=== PATIENT | male | born 1965 | race Two or more races ===

== ENCOUNTER → 2021-10-28 10:57 | Outpatient (REF) | payer OTHER, SELFPAY ==
--- NOTE | 2021-10-28 11:07 | CA_ITS ---
Acquisition Time: 2021-10-28 11:06:36 Total Exercise Time: 00:08:16 Test Indications: ABN EKG, CP Medications: SEE CHART Protocol: GRACIELA Max HR: 171 BPM 104% of Pred: 164 BPM Max BP: 136/078 mmHG Max Work Load: 10.1 METS Exercise stress test with exercise 8 min 16 sec of Graciela protocol, without anginal symptoms, with isolated PACs, with normotensive response to exercise, without EKG changes meeting criteria for ischemia. Echo images obtained by tech at rest and immediately post peak exercise. Definity contrast used. Test reviewed with Dr Barlow. Referred By: Janett Post Overread By: ENE CAT
== END ==
LOC: HO.CARD 10:57
PROVIDERS: Visit Provider Family Medicine
DX: R07.89 Other chest pain (principal)
CPT/HCPCS: 93350; Q9957

== ENCOUNTER 2023-04-21 12:45 | Outpatient (REF) | payer OTHER, SELFPAY ==
--- NOTE | ~2023-04-21 | MR_ITS ---
EXAMINATION: MR CERVICAL SPINE WITHOUT CONTRAST CLINICAL INFORMATION: Neck pain, numbness and tingling, left arm. COMPARISON: None available. TECHNIQUE: MRI of the cervical spine was obtained using routine sequences without contrast. FINDINGS: Alignment: Mild cervicothoracic dextrocurvature, convex to the right at C7-T1. Straightening of the cervical spine in the sagittal plane with trace anterolisthesis at C6-C7. Craniocervical Junction/C1-C2 Articulations: Intact and aligned. Arthritic changes at the anterior atlantodental joint with a subchondral cyst in the dens. Visualized Intracranial/Extracranial: There is a 1.3 cm probable benign lipoma within the muscular structures adjacent to the posterior occiput. Otherwise unremarkable.. Vertebral Bodies: Vertebral body heights are well-maintained. Disc Spaces and Endplates: Severe disc space height loss at C4-C5 with intradiscal degenerative signal changes and spondylosis with Schmorl's nodes. Iwkreusx-wf-iunfod disc space height loss at C6-C7 with disc desiccation and spondylosis. Disc desiccation and mild disc space height loss with minor spondylosis at C5-C6. Disc desiccation and minor spondylosis at C3-C4. Bone Marrow: Type I degenerative marrow signal changes along the endplates at C4-C5. No other significant bone marrow edema. C2-C3: Tiny central disc protrusion with minimal indentation of the ventral thecal sac without cord impingement or canal stenosis. Mild facet arthropathy noted bilaterally with minor uncinate process spurring, with mild left-sided neural foraminal stenosis. C3-C4: Broad-based disc osteophyte complex with mild flattening of the ventral dural sac without cord impingement or canal stenosis. Uncovertebral spurring noted bilaterally, right more than left, with mild left-sided and hnyrvscj-nq-aifsfj right-sided facet arthrosis. There is severe right-sided and neyzsjty-xq-lvrsew left-sided neural foraminal stenosis with impingement on the exiting right C4 nerve root. C4-C5: Broad-based posterior disc osteophyte complex asymmetric to the left, with effacement of the dural sac on the left with mild chronic ventral cord deformity and spinal cord volume loss consistent with spondylitic myelomalacia. There is uoqj-uu-ziqyndks spinal canal stenosis asymmetric to the left with left lateral recess stenosis and there is uncovertebral spurring, left more than right, with ekjp-lj-icwbwnzd facet arthropathy bilaterally. Severe left-sided and moderate right-sided neural foraminal stenosis, with impingement on the exiting left C5 nerve root. C5-C6: Shallow broad-based disc protrusion asymmetric to the left with left subarticular disc osteophyte complex and flattening of the ventral dural sac without cord impingement. Urgb-mo-oakudsly spinal canal stenosis is noted and there is uncovertebral spurring bilaterally with mild facet arthropathy. Vnlkezne-ij-zevplw left-sided and qjpk-kv-pvbnokrn right-sided neural foraminal stenosis. C6-C7: Trace unroofing of the posterior disc margin noted consistent with mild degenerative spondylolisthesis, with posterolateral disc osteophyte complex and flattening of the ventral dural sac without cord impingement. Mild spinal canal stenosis is noted. There is uncovertebral spurring, left more than right with xkuczgox-gd-oyxkjr left-sided facet arthropathy, with severe left-sided neural foraminal stenosis and probable impingement on the exiting left C7 nerve root. Zwbz-yg-jdmriaxz right-sided neural foraminal stenosis is noted. C7-T1: Shallow broad-based disc protrusion noted with mild flattening of the ventral dural sac with ligamentum flavum thickening without cord impingement. No significant canal stenosis. Suspicion for a left subarticular to foraminal disc protrusion with uncovertebral spurring bilaterally, mild right and moderate left-sided facet arthropathy. There is xlfd-xd-nrswvetq bilateral neural foraminal stenosis with disc herniation suspected on the left impinging on the exiting left C8 nerve root. T1-T2: Right subarticular to foraminal disc osteophyte complex noted with mild facet arthropathy and nviiqbge-jv-arbkge right-sided neural foraminal stenosis with possible impingement on the exiting right T1 nerve root. No canal stenosis. T2-T3: There is focal thickening of the ligamentum flavum on the left with associated signal loss noted which may reflect calcium hydroxyapatite deposition associated with left-sided facet arthropathy, with flattening of the dorsolateral dural sac on the left without cord impingement or significant neural foraminal stenosis. There is a small right paramedian disc osteophyte complex with mild indentation of the right ventral thecal sac without cord impingement. Spinal Cord: Findings consistent with spondylitic myelomalacia at C4-C5. Nonspecific small T2 hyperintensity on the right side of the spinal cord at C7-T1 which may be artifactual with a small T2 hyperintensity in the dorsolateral cord on the left at the same level, also possibly artifactual but otherwise nonspecific findings. No cord edema or syrinx. Extracranial Soft Tissues: Normal signal voids seen within the major arterial and venous structures in the neck. Subcentimeter probable lymph nodes in the fat posterior to the trapezius muscles bilaterally. Borderline prominent IJ chain lymph nodes at the suprahyoid levels bilaterally. Possibly reactive. Follow-up as per clinical indications. MR/MR cervical spine wo con IMPRESSION: 1. Straightening of the cervical spine in the sagittal plane with trace anterolisthesis at C6-C7 and mild cervicothoracic dextrocurvature. 2. Multilevel DDD and spondylosis, most apparent at C4-C5 and C6-C7 with multilevel disc osteophyte complexes and disc protrusions as detailed by level above with pcyh-rp-alizvgeg degrees of spinal canal stenosis at C4-C5 and C5-C6 with mild spinal canal stenosis at C6-C7. 3. Multilevel bilateral DJD with multilevel bilateral neural foraminal stenosis, most apparent on the left at C4-C5, C5-C6 and C6-C7 and on the right at C3-C4 and T1-T2. Left subarticular to foraminal disc herniation at C7-T1 impinging on the exiting left C8 nerve root. See above for details. 4. Possible calcium hydroxyapatite deposition within the ligamentum flavum on the left at T2-T3. This can be confirmed with CT if clinically warranted. 5. Small T2 hyperintensities in the spinal cord at C7-T1 and T2-T3 which may be artifactual but otherwise nonspecific findings. Chronic spondylitic myelomalacia suspected at C4-C5. 6. Borderline prominent IJ chain lymph nodes at the suprahyoid levels bilaterally and slightly prominent lymph nodes posterior to the trapezius muscles bilaterally. These are likely reactive. Follow-up as per clinical indications. 7. 1.3 cm probable benign lipoma along the posterior occiput.
== END 2023-04-21 12:46 | disposition home or self-care (01) ==
LOC: HO.MRI 12:45
PROVIDERS: Absent Provider Family Medicine; PCP Family Medicine; Visit Provider Internal Medicine
DX: M54.2 Cervicalgia (principal)
CPT/HCPCS: 72141

== ENCOUNTER 2024-04-19 10:58 | Outpatient (REF) | payer OTHER, SELFPAY ==
[2024-04-19 15:01] LABS: MANUAL DIFF FLAG NO
[2024-04-19 15:03] LABS: Basophils Percent Auto 0.6 % (0-2); Eosinophils Absolute Auto 0.1 X10*3/uL (0.0-0.4); Hematocrit 43.8 % (42.0-52.0); Hemoglobin 14.7 g/dl (14.0-18.0); Imm Gran Abs Auto 0.02 X10*3/uL (0.00-0.03); Imm Gran Pct Auto 0.3 % (0.0-0.4); Lymphocytes Absolute Auto 1.9 X10*3/uL (1.2-4.9); Lymphocytes Percent Auto 28.6 % (20-40); Mean Corpuscular HGB Conc 33.6 g/dl (31.0-36.0); Mean Corpuscular Hemoglobin 30.4 pg (27.0-33.0); Mean Corpuscular Volume 90.5 fL (80.0-98.0); Mean Platelet Volume 11.8 fL (9.4-12.4); Monocytes Absolute Auto 0.5 X10*3/uL (0.1-1.2); Monocytes Percent Auto 7.8 % (2-11); Neutrophils Absolute Auto 4.2 x10*3/uL (2.0-8.3); Neutrophils Percent Auto 61.7 % (45-73); Platelet Count 155 X10*3/uL (160-400); Red Blood Count 4.84 X10*6/uL (4.60-5.80); Red Cell Distribution Width 13.2 % (11.0-16.0); White Blood Count 6.8 X10*3/uL (4.8-10.8)
[2024-04-19 15:04] LABS: Appearance Urine Clear; Color Urine Yellow; Glucose Urine UA Negative (Negative); Leukocyte Esterase Urine Negative (Negative); Nitrite Urine Negative (Negative); PH 6.5 (5.0-9.0); Urine Blood Negative (Negative); Urine Ketones Negative (Negative); Urine Protein Negative (Neg-Trace)
[2024-04-19 15:10] LABS: Bacteria Urine None Seen (None Seen); Hyaline Casts Urine 0-2 /LPF (0-2); RBC Urine 0-2 /HPF (0-2); Squamous Epithelial Cell Urine 0-2 /HPF (0-2); WBC Urine 0-5 /HPF (0-5)
[2024-04-19 15:27] LABS: Alanine Aminotransferase 29 U/L (0-40); Albumin Level 4.4 g/dL (3.5-5.0); Alkaline Phosphatase 59 U/L (39-117); Anion Gap 12 (12-20); Aspartate Amino Transferase 28 U/L (5-37); Bilirubin Total 0.6 mg/dL (0.0-1.0); Blood Urea Nitrogen 16 mg/dL (9-16); Carbon Dioxide 27 mmol/L (22-29); Chloride 102 mmol/L (96-108); Cholesterol 201 mg/dL (<200); Estimated Glomerular Filt Rate > 60; Glucose Random 92 mg/dL (60-115); HDL Cholesterol 55 mg/dL (>40); LDL Cholesterol Calculated 131 mg/dL (<100); Potassium 3.8 mmol/L (3.3-5.1); Sodium 137 mmol/L (135-145); Total Protein 7.7 g/dL (6.5-8.0); Triglycerides 76 mg/dL (<150)
[2024-04-19 15:33] LABS: Creatinine Urine 144.32 mg/dL; Microalbum/Creatinine Ratio Ur 4.1 ug/mg cr (<30)
[2024-04-19 15:43] LABS: PSA,Total (Free>4and<10) 0.49 ng/mL (0.00-4.00)
== END 2024-04-19 10:59 | disposition home or self-care (01) ==
LOC: HO.CHCLDS 10:58
PROVIDERS: Visit Provider Family Medicine
DX: E66.9 Obesity, unspecified (principal); R39.12 Poor urinary stream; Z12.5 Encounter for screening for malignant neoplasm of prostate
CPT/HCPCS: 36415; 80053; 80061; 81001; 82043; 82570; 84153; 85025

== ENCOUNTER 2024-04-24 10:23 | Outpatient (REF) | payer OTHER, SELFPAY ==
--- NOTE | ~2024-04-24 | US_ITS ---
EXAMINATION: US SCROTUM CLINICAL INFORMATION: 59-year-old male with bilateral testicular pain, rule out varicocele. COMPARISON: None available. TECHNIQUE: A sonogram of the scrotum was performed assessing martins-scale appearance and color Doppler flow. Spectral Doppler analysis of the arterial and venous flow were performed in the testes bilaterally. FINDINGS: RIGHT: Right testicle measures 3.5 x 1.8 x 3.1 cm, volume 10.3 mL. No focal testicular parenchymal solid lesions are visualized. A 3 mm simple cyst is incidentally noted. Spectral Doppler analysis of the arterial and venous flow is normal in the right testis. Right epididymal head is normal in size. Right epididymal Doppler flow is normal. No right hydrocele is seen. There are mild varicoceles. LEFT: Left testicle measures 3.8 x 2.1 x 3.1 cm, volume 13.0 mL. No focal testicular parenchymal solid lesions are visualized. A 2 mm simple cyst is incidentally noted. Spectral Doppler analysis of the arterial and venous flow is normal in the left testis. Left epididymal head is normal in size. Left epididymal Doppler flow is normal. A small left hydrocele is seen. There are mild varicoceles US/US scrotum IMPRESSION: 1. A small left hydrocele is seen. 2. There are mild bilateral varicoceles.
== END 2024-04-24 10:24 | disposition home or self-care (01) ==
LOC: HO.HMGCX 10:23
PROVIDERS: PCP Family Medicine; Visit Provider Family Medicine
DX: N50.811 Right testicular pain (principal); N50.812 Left testicular pain
CPT/HCPCS: 76870

== ENCOUNTER 2025-02-19 11:31 | Outpatient (AMB) | payer OTHER, SELFPAY ==
--- NOTE | 2025-02-19 11:38 | MHC.OFFVIS ---
Vital Signs 02/19/25 11:47 Height 5 ft 9 in Weight 260 lb 2.327 oz BMI 38.4 BP 94/57 L Blood Pressure Location Lt brachial Position Sitting Pulse 68 Intake Visit Reasons: colo screening Intake Note: Sai presents in the office as a colonoscopy screening. CC: He states that he is just due for a colonoscopy. No other GI concerns at this time. Wants to discuss if it is possible to have a cologuard instead of doing the actual procedure this time around? Head Soft Sugar Operator Required: No Allergies No Known Allergies Allergy (Verified 02/19/25 11:48) HPI HPI colo screening: Details: 59-year-old male with past medical history of hyperlipidemia, hypertension is here today for initial consultation. Patient was sent to us by his PCP. Patient reports that he had colonoscopy over 10 years ago or so in [place]. Patient was told he had benign polyps and no need for repeat for colonoscopy for 10 years. No family history of CRC. Patient would rather go for Cologuard instead of going for colonoscopy. Patient reports that his who is with patient during the visit had Cologuard and he would like to proceed with that at 1st. Patient does understand it if that becomes positive which is possibility he will have to return to the office for colorectal screening via colonoscopy. [facility] Medical History Hyperlipidemia HTN (hypertension) Obesity, unspecified Weak urinary stream Colon polyps Testicle pain Surgical History Hx of colonoscopy Social History Patient Tobacco Use Status: Former Tobacco user Review of Systems Const Denies weight gain and Denies weight loss ENT Reports no additional complaints, Denies dysphagia and Denies odynophagia Card Reports no additional complaints Resp Reports no additional complaints GI Denies abdominal pain, Denies belching, Denies melena, Denies bloating, Denies change in bowel habits, Denies dysphagia, Denies excessive flatus, Denies dyspepsia, Denies heartburn, Denies diarrhea, Denies loose stools, Denies nausea, Denies odynophagia and Denies vomiting Reports no additional complaints Musc Reports no additional complaints Neuro Reports no additional complaints Psych Reports no additional complaints Endo Reports no additional complaints Physical Exam Vital Signs: Last Vital Signs Pulse 68 02/19/25 11:47 BP 94/57 L 02/19/25 11:47 BMI result Body Mass Index 38.4 Const General: healthy appearing, no acute distress and well developed Nutritional Appearance: well nourished Orientation/consciousness: patient oriented x3 Resp Effort & Inspection: normal respiratory effort, able to speak in complete sentences, no tracheal deviation and symmetric chest movement Auscultation: clear to auscultation bilaterally Cardio Rate: regular rate GI Inspection: Yes normal to inspection and No distended Palpation (GI): Soft to palpation, not firm, nontender and No hepatosplenomegaly present Auscultation: normal bowel sounds General: Yes no CVA tenderness Back/Spine/Pelvis Back: no CVA tenderness Skin General skin exam: elasticity normal, turgor normal and dry skin Neuro General: patient oriented x3 Psych Appearance: grossly normal Mental Status: mental status grossly normal Assessment & Plan Assessment & Plan (1) Screen for colon cancer: Code(s): Z12.11 - Encounter for screening for malignant neoplasm of colon Plan Request sent to [facility] for Cologuard to be sent to patient's home. He is aware that if that comes back positive he is to call our office and make an appointment to go for colonoscopy. Patient denies any family history of CRC. Denies any melena, hematochezia, unintentional weight loss or ribbon like stools. Patient denies any GI symptoms today. He will follow-up with our office as needed. He is agreeable to current plan of care and verbalizes understanding of instructions. Patient's reports that she will make sure that patient will call our office if Cologuard is positive. Both patient and his were given the opportunity to ask questions and all questions answered. Thank you for allowing me to participate in his care Coding Level of Care Code New Pt Level 3 (08663) Diagnoses Screen for colon cancer Z12.11 Time Spent (min) 40 Comment 30 minutes spent with patient and additional 10 minutes spent reviewing his records
[2025-02-19 11:47] VITALS: BP 94/57; PULSE 68; BMI 38.4
--- OUTSIDE RECORDS SUMMARY | 2025-02-19 14:04 | XMS_ITS | Clinical Summary ---
Author Organization [employer] Address [address] [place] [address] Care Team Providers Care Special Events Assistant Name Role Phone Janett Post MD Primary Care Provider [phone] Allergies No known active allergies Medications LORazepam (Ativan) 0.5 MG tabletIndicatio ns:Other chest pain,Panic attack Take 1 tablet (0.5 mg) by mouth every 6 (six) hours if needed for anxiety for up to 5 doses. 5 tablet 05/28/2024 Active Olmesartan-amLO DIPine-HCTZ 40-10-12.5 MG tablet TAKE 1 TABLET DAILY 90 tablet 3 06/06/2024 Active Hospital, Clinic, or Other Facility Administered Medication Ordered Dose Route Frequency Start Date End Date Status aspirin chewable tablet 324 mgIndications:Other chest pain 324 mg PO Once 05/28/2024 Active Active Problems Problem Noted Date Diagnosed Date Obesity (BMI 30-39.9) 04/19/2024 Assessment & Plan (04/19/2024 11:37 AM EDT): Pt is currently 260 lb. Discussed calorie deficit, recommended reduction of 20-30% of maintenance calories; animal humane agent supervisor referral offered. Recommended to decrease soda and sugary beverage consumption. Recommended at least 20 g per meal of protein to assist with satiety. Recommended at least 150 min/week of moderate intensity exercise. Weak urinary stream 04/19/2024 Assessment & Plan (04/19/2024 11:31 AM EDT): Pt states he has to push to pee and it hurts a bit when doing so. Relevant order: Urinalysis, Complete, with Reflex to Culture PSA, Total With Reflex to PSA, Free Referral to Urology Pain in both testicles 04/19/2024 Assessment & Plan (04/19/2024 11:34 AM EDT): Pt is experiencing pain in both testicles. He has some relief when lifted. Relevant orders: Referral to Urology Hypertensive disorder 04/17/2024 Mixed hyperlipidemia 04/17/2024 Spasm 04/17/2024 Neck pain 03/10/2023 Assessment & Plan (03/10/2023 11:03 PM EDT): Pain mostly located on his left side, refers having left arm tingling, numbness, will order a neck MRI, continue rest, apply ice/heat, will order meloxicam as needed Immunizations Name Administration Dates Next Due Influenza Injectable Quadriv alant Preservative Free IIV4 MDCK 09/17/2022 Influenza injectable quadrivalent preservative f ree 08/20/2023,08/21/2021 Zoster, Recombinant 09/17/2022 Family History Medical History Relation Name Comments Osteoarthritis Mother Relation Name Status Comments Mother Social History Tobacco Use Types Packs/Day Years Used Date Smoking Tobacco: Former Cigarettes Passive Smoke Exposure: Past Smokeless Tobacco: Never Tobacco Cessation:Counseling Given: Not Answered Alcohol Use Standard Drinks/Week Comments Yes 6 (1 standard drink = 0.6 oz pur e alcohol) Depression Answer Date Recorded Patient Health Questionnaire-9 Score 3 04/19/2024 Patient Health Questionnaire-9 Score 3 04/19/2024 Last PHQ-9: Questionnaire Data Not on file 0 04/19/2024 Housing Stability Answer Date Recorded What is your housing situation today? I have edna soto 04/19/[address] you li ve. Do you have problems with any of the following? None of the above 04/19/2024 Food Insecurity Answer Date Recorded Within the past 12 months, y ou worried that your food would run out before you got money to buy more: Never True 04/19/2024 Within the past 12 months,th e food you bought just didn't last and you didn't have enough money to get more: Never True Transportation Answer Date Recorded In the past 12 months, has l ack of transportation kept you from medical appts, meetings, work or from getting things needed for daily living? No 04/19/2024 Utilities Answer Date Recorded In the past 12 months, has t he electric, gas, oil or water company threatened to shut off services in your home? No 04/19/2024 Depression Answer Date Recorded Patient Health Questionnaire-2 Score 0 04/19/2024 Internet Access Answer Date Recorded Internet Access Q1 No 07/02/2024 Internet Access Q2 I do not want or need it 12/2023 Sex and Gender Information Value Date Recorded Sex Assigned at Male 08/30/2022 10:39 AM EDT Legal Sex Male 10:39 AM EDT Gender Identity Male 08/30/2022 10:39 AM EDT Sexual Orientation Straight 08/30/2022 10 :39 AM EDT Last Filed Vital Signs Vital Sign Reading Time Taken Comments Blood Pressure 126/85 05/28/2024 5:15 PM EDT Pulse 57 05/28/2024 5:15 PM EDT Temperature 36.8 ??C (98.2 ??F) 05/28/2024 5:15 PM ED T Respiratory Rate 20 05/28/2024 5:15 PM EDT Oxygen Saturation 100% 05/28/2024 5:15 PM EDT RA Inhaled Oxygen Concentration - - Weight 122 kg (268 lb 3.2 oz) 04/19/2024 10:07 A M EDT Height 177.8 cm (5' 10 ) 04/19/2024 10:07 AM EDT Body Mass Index 38.48 04/19/2024 10:07 AM EDT Plan of Treatment Health Maintenance Due Date Last Done Comments CT Colonography 1965 Colonoscopy 1965 Colorectal Cancer Screening 1965 FIT DNA/Cologuard 1965 FIT 1965 FOBT 1965 HIV Screening 1965 Sigmoidoscopy 1965 Alcohol/Substance Use Screening 1977 DTaP/Tdap/Td Vaccines (1 - Tdap) 1984 Hepatitis B Vaccines (1 of 3 - 19+ 3-dose series) 1984 Pneumococcal Vaccine: 50+ Years (1 of 1 - PCV) 2015 Zoster Vaccines (2 of 2) 11/12/2022 09/17/2022 COVID-19 Vaccine (6 - season) 2024 08/13/2023, 10/02/2022, 06/03/2022, Additional history exists Influenza Vaccine (#1) 2024 , 09/17/2022, 08/21/2021 Depression Screening 04/19/2025 04/19/2024, 04/19/20 SDOH Screening 04/19/2025 04/19/2024 Tobacco Screening 05/28/2025 05/28/2024 Lipid Panel 04/19/2029 04/19/2024, 06/01, 08/21/2021 RSV Patients and Patients Aged 60 years or older (1 - 1-dose 75+ series) 2040 Hepatitis C Screening Completed 06/24/2022 HIB Vaccines Aged Out No longer eligi ble based on patient's age to complete this topic HPV Vaccines Aged Out No longer eligi ble based on patient's age to complete this topic Hepatitis A Vaccines Aged Out No long er eligible based on patient's age to complete this topic IPV Vaccines Aged Out No longer eligi ble based on patient's age to complete this topic Meningococcal Vaccine Aged Out No rissa brissa eligible based on patient's age to complete this topic RSV under 20 months Aged Out No longe r eligible based on patient's age to complete this topic Rotavirus Vaccines Aged Out No longer eligible based on patient's age to complete this topic Procedures Procedure Name Priority Date/Time Associated Diagnosis Comments LIPID PANEL, STANDARD Routine 04/19/2024 11:02 AM EDT Obesity (BMI 30-39.9) ZZZ HISTORICAL HEPATITIS C AB W/REFL TO HCV RNA, QN, PCR Routine 06/24/2022 8:32 AM EDT from Last 3 Months or Most Recently Relevant to Health Maintenance Results * (ABNORMAL) Lipid Panel, Standard (04/19/2024 11:02 AM EDT) Triglycerides 76 <150 mg/dL [facility] Comment:Desirable Triglyceri de: less than 150 mg/dLBorderline High Triglyceride 150-199 mg/dLHigh Triglyceride: 200-499 mg/dLVery High Triglyceride: greater than or equal to 5OO mg/dL Cholesterol 201(H) <200 mg/dL [facility] Comment:Desirable Cholestero l: less than 200 mg/dLBorderline High Cholesterol: 200-239 mg/dLHigh Cholesterol: greater than 239 mg/dL LDL Cholesterol Calculated 131(H) <100 mg/dL [facility] Comment:Desirable LDL: less than 100 mg/dLNear Optimal/Above Optimal LDL: 110- 129 mg/dLBorderline High LDL: 130-159 mg/dLHigh LDL: 160-189 mg/dLVery High LDL: greater than or equal to 190 mg/dL HDL Cholesterol 55 >40 mg/dL [facility] Comment:Desirable HDL: great er than 40 mg/dL Note: This HDL assay may give artificially low results in patients with liver disease. Blood Venous blood specimen / Unknown 04/19/2024 11:02 AM EDT 04/19/2024 2:46 PM EDT us Janett Post MD LAB BLOOD ORDERABLES Final Re sult [facility] [address] [place] [phone] * HEPATITIS C AB W/REFL TO HCV RNA, QN, PCR (06/24/2022 8:32 AM EDT) HEPATITIS C ANTIBODY NON-REACT SUJIT NON-REACT [facility] INDEX 0.17 <1.00 [facility] Comment: ?? HCV antibody was non-reactive. There is no laboratory ?? evidence of HCV infection. ?? In most cases, no further action is required. However, if recent HCV exposure is suspected, a test for HCV RNA (test code 95050) is suggested. ?? For additional information please refer to http://education.[employer]/faq/CEJ74t2 (This link is being provided for informational/ educational purposes only.) ?? 06/24/2022 8:32 AM EDT us Janett Post MD HISTORICAL/NON ORDERABLE LABS Final Result [facility] [address] from Last 3 Months or Most Recently Relevant to Health Maintenance Insurance Care Teams Special Events Assistant Relationship Specialty Start Date End Date Janett Post MD [address] [place] [address] PCP - General Family Medicine 08/18/21
--- OUTSIDE RECORDS SUMMARY | 2025-02-19 14:04 | XMS_ITS | Clinical Summary ---
Author Organization [facility] Address [address] [place] [address] Care Team Providers Care Harness Worker Name Role Phone Unavailable Primary Care Provider Unavailabl e Social History Tobacco Use Types Packs/Day Years Used Date Smoking Tobacco: Never Assessed Sex and Gender Information Value Date Recorded Sex Assigned at Not on file Legal Sex Male 8:43 PM EST Gender Identity Not on file Sexual Orientation Not on file Plan of Treatment Health Maintenance Due Date Last Done Comments DTaP,Tdap,and Td Vaccines (1 - Tdap) 1984 Hepatitis B Vaccines (1 of 3 - 19+ 3-dose series) 1984 Pneumococcal Vaccine: 50+ Ye ars (1 of 1 - PCV) 2015 Zoster Vaccines (1 of 2) 2015 Cholesterol Screening (Lipid Panel) 11/25/2023 Colorectal Cancer Screening: Colonoscopy 11/25/2023 Depression Screening 11/25/2023 HIV Screening 11/25/2023 Hepatitis C Screening 11/25/2023 Social Influencers of Health Screening 11/25/2023 COVID-19 Vaccine ( - 2023-2 5 season) 2024 Influenza Vaccine (Season Ended) 2025 RSV Immunization Adult Patie nts (1 - 1-dose 75+ series) 2040 HIB Vaccines Aged Out No longer eligi [...] on patient's age to complete this topic MMR Vaccines Aged Out No longer eligi ble based on patient's age to complete this topic Meningococcal ACWY Vaccine Aged Out N o longer eligible based on patient's age to complete this topic Meningococcal B Vaccine Aged Out No l onger eligible based on patient's age to complete this topic Pneumococcal Vaccine: Pediat rics (0 to 5 Years) and At-Risk Patients (6 to 64 Years) Aged Out No longer eligible b ased on patient's age to complete this topic RSV Immunization Patients Un antonia 20 months Aged Out No longer eligible b ased on patient's age to complete this topic Varicella Vaccines Aged Out No longer eligible based on patient's age to complete this topic
--- OUTSIDE RECORDS SUMMARY | 2025-02-19 14:04 | XMS_ITS | Encounter Summary ---
Author Organization [employer] Address [address] [facility] [address] [place] [address] Care Team Providers Care Mandate Retail Service Merchandiser Name Role Phone Janett Post MD Primary Care Provider [phone] Encounter Details Date Type Department Care Team (Late st Contact Info) Description 06/08/2023 Orders Only [facility] [address] [place] [address] Marie De Leon LPN Social History Tobacco Use Types Packs/Day Years Used Date Smoking Tobacco: Never Assessed Depression Answer Date Recorded Patient Health Questionnaire-9 Score 0 03/10/2023 Depression Answer Date Recorded Patient Health Questionnaire-2 Score 0 03/10/2023 Sex and Gender Information Value Date Recorded Sex Assigned at Male 08/30/2022 10:39 AM EDT Legal Sex Male 10:39 AM EDT Gender Identity Male 08/30/2022 10:39 AM EDT Sexual Orientation Straight 08/30/2022 10 :39 AM EDT documented as of this encounter Plan of Treatment Not on file documented as of this encounter Visit Diagnoses Not on filedocumented in this encounter Additional Health Concerns Assessment Noted Time PHQ-9 Depression Total Score: 0 03/10/20 23 3:57 PM EDT documented as of this encounter Care Teams Mandate Retail Service Merchandiser Relationship Specialty Start Date End Date Janett Post MD [address] [place] [address] PCP - General Family Medicine 08/18/21 documented as of this encounter
--- OUTSIDE RECORDS SUMMARY | 2025-02-19 14:04 | XMS_ITS | Encounter Summary ---
Author Organization [employer] Address [address] [facility] [address] [place] [address] Care Team Providers Care Ehs Manager Name Role Phone Janett Post MD Primary Care Provider [phone] Reason for Visit * Reason Onset Date Comments ER Follow-up 05/29/2024 Encounter Details Date Type Department Care Team ([facility] st Contact Info) Description 05/29/2024 Telephone [facility] [address] [place] [address] Janett Post MD [address] [place] [address] ER Follow-up Social History Tobacco Use Types Packs/Day Years Used Date Smoking Tobacco: Former Cigarettes Passive Smoke Exposure: Past Smokeless Tobacco: Never Alcohol Use Standard Drinks/Week Comments Yes 6 [...] Recorded Patient Health Questionnaire-2 Score 0 04/19/2024 Sex and Gender Information Value Date Recorded Sex Assigned at Male 08/30/2022 10:39 AM EDT Legal Sex Male 10:39 AM EDT Gender Identity Male 08/30/2022 10:39 AM EDT Sexual Orientation Straight 08/30/2022 10 :39 AM EDT documented as of this encounter Miscellaneous Notes * Telephone Encounter - Wing Josh RN - 05/30/2024 4:05 PM EDT Tc to pt regarding follow-up. Pt reports only 1/10 chest pain that is intermittent with last being present on 05/28 when present at [facility] . Main issue is shaking and hyperventilating that occurs 1-2times a day an 3-4 times a day respectively. Pt reports symptoms are a little better. Symptoms become better when pt take Ativan and aspirin as needed. Gave pt appt with Dr. Russo on 06/05 at 3:30 pm. Advised pt to go to ED if chest pain returns though pt reported that his symptoms get worse when he is in the [facility] and feels that going to the ED will worsen the symptoms. Pt verbalized understanding and agreement with plan. * Telephone Encounter - Jeff Friend - 05/30/2024 9:26 AM EDT Tc from patient returning call in regards to the message below * Telephone Encounter - Kathleen Donnelly RN - 05/29/2024 3:52 PM EDT T/C to pt. For below message, No answer. LVM to call back on [phone] * Telephone Encounter - Jeff Friend - 05/29/2024 12:04 PM EDT Patient calling to report ED visit on : Date: 05/28 Hospital: [facility] Seen for: Chest Pain Patient advised will forward to team nurse for follow up documented in this encounter Plan of Treatment Not on file documented as of this encounter Visit Diagnoses Not on filedocumented in this encounter Additional Health Concerns Assessment Noted Time PHQ-9 Depression Total Score: 3 04/19/20 24 10:08 AM EDT documented as of this encounter Care Teams Ehs Manager Relationship Specialty Start Date End Date Janett Post MD [address] [place] [id number] PCP - General Family Medicine 08/18/21 documented as of this encounter
== END 2025-02-19 12:26 | disposition home or self-care (01) ==
LOC: HO.HGI 11:31
PROVIDERS: PCP Family Medicine; Visit Provider Nurse Practitioner Family
DX: Z01.818 Encounter for other preprocedural examination (principal); Z12.11 Encounter for screening for malignant neoplasm of colon; Z86.0100 Personal history of colon polyps, unspecified
CPT/HCPCS: 99202